=== PATIENT | male | born 2000 | race African-American/Black ===

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

== ENCOUNTER 2020-06-10 11:15 | Emergency (ER) | payer OTHER ==
[~2020-06-10] VITALS: Ht 177.8 cm; Wt 63.5 kg
[2020-06-10] MEDS ORDERED: CYCLOBENZAPRINE5 MG PO (13:10)
[2020-06-10] MEDS ORDERED: MOBIC7.5 MG PO (13:10)
[2020-06-10 13:41] VITALS: BP 127/83
== END 2020-06-10 13:49 | disposition home or self-care (01) ==
LOC: ER 11:15
DX: M25.512 Pain in left shoulder (principal); M54.6 Pain in thoracic spine